=== PATIENT | male | born 1990 | race Hispanic/Latino ===

== ENCOUNTER 2017-05-27 20:06 | Emergency (ER) | payer OTHER ==
[2017-05-27 20:34] VITALS: BP 132/73; PULSE 67; RESP 18; TEMP 98.1; O2SAT 99
[2017-05-27] MEDS: Sodium Chloride 0.9% 1,000 ML IV STA (21:40)
--- NOTE | 2017-05-27 21:50 | ED PDOC ---
HPI: Abdomen Time Seen by Provider: 05/27/17 20:37 Chief Complaint (Nursing): Abdominal Pain Chief Complaint (Provider): Abdominal Pain History Per: Patient History/Exam Limitations: no limitations Onset/Duration Of Symptoms: Hrs Current Symptoms Are (Timing): Still Present Additional Complaint(s): 27 y/o male presents to the emergency department after several episodes of non- bloody vomiting and non-bloody diarrhea, with right-sided upper abdominal pain since earlier this morning, 05/27/2017. Reports he visited [facility] and had blood work completed. States he received a call back with abnormal labs such as elevated white blood count and bilirubin. Patient was then advised to visit the emergency department for further testing. Admits to alcohol use, 2 beers, on 05/26/2017. Denies fever or any recent travel. Past Medical History Reviewed: Historical Data, Nursing Documentation, Vital Signs Vital Signs: Last Vital Signs Temp 98.1 F 05/27/17 20:31 Pulse 67 05/27/17 20:31 Resp 18 05/27/17 20:31 BP 132/73 05/27/17 20:31 Pulse Ox 99 05/28/17 19:41 - Medical History PMH: No Chronic Diseases - Surgical History Surgical History: No Surg Hx - Family History Family History: States: No Known Family Hx - Home Medications Home Medications: Ambulatory Orders Medication Instructions Recorded Ondansetron ODT [Zofran ODT] 4 mg PO Q8 PRN #12 odt 05/28/17 - Allergies Allergies/Adverse Reactions: Allergies Allergy/AdvReac Type Severity Reaction Status Date / Time No Known Allergies Allergy Verified 05/27/17 20:31 Review of Systems ROS Statement: Except As Marked, All Systems Reviewed And Found Negative Constitutional: Negative for: Fever Gastrointestinal: Positive for: Vomiting, Abdominal Pain, Diarrhea. Negative for: Hematochezia, Hematemesis Physical Exam - Reviewed Nursing Documentation Reviewed: Yes Vital Signs Reviewed: Yes - Physical Exam Appears: Positive for: Non-toxic, No Acute Distress. Negative for: Uncomfortable Head Exam: Positive for: ATRAUMATIC, NORMAL INSPECTION, NORMOCEPHALIC Skin: Positive for: Normal Color, Warm, Dry Eye Exam: Positive for: Normal appearance ENT: Positive for: Normal ENT Inspection Neck: Positive for: Normal, Supple Cardiovascular/Chest: Positive for: Regular Rate, Rhythm. Negative for: Murmur Respiratory: Positive for: Normal Breath Sounds. Negative for: Accessory Muscle Use, Wheezing, Respiratory Distress Gastrointestinal/Abdominal: Positive for: Soft, Tenderness (RUQ tenderness). Negative for: Normal Exam Back: Positive for: Normal Inspection. Negative for: L CVA Tenderness, R CVA Tenderness Extremity: Positive for: Normal ROM. Negative for: Pedal Edema Neurologic/Psych: Positive for: Alert, Oriented (x3) - Laboratory Results Result Diagrams: 05/27/17 21:50 05/27/17 22:00 - ECG O2 Sat by Pulse Oximetry: 99 (RA) Pulse Ox Interpretation: Normal Medical Decision Making Medical Decision Making: Time: 2108 Initial impression: Abdominal pain with vomiting and diarrhea. Differential includes biliary disease, cholelithiasis, prancreatitis, cholecystitis, hepatitis, and gastroenteritis Initial plan: --VBG Shock Panel --Bilirubin, Direct --CMP --Lipase --CBC w/ diff --Morphine 4 mg IVP --Sodium Chloride 1L IV --Zofran 4 mg IV --Blood Culture --Urinalysis --Abdomen Limited US --Reevaluation Scribe Attestation: Documented by Haylie Coronado, acting as a scribe for Shu Jeffers MD. Provider Scribe Attestation: All medical record entries made by the Scribe were at my direction and personally dictated by me. I have reviewed the chart and agree that the record accurately reflects my personal performance of the history, physical exam, medical decision making, and the department course for this patient. I have also personally directed, reviewed, and agree with the discharge instructions and disposition. ED OBSERVATION Discharge: Yes Date of observation admission: 05/27/17 Time of observation admission: 22:34 - Observation admission statement Patient is being placed in observation because:: Pt w/ abdominal pain - Goals of Observation Goals of observation are:: Pending ED workup - Progress Note Progress Note: 05/27/17 23:59 Pt pending US abdomen, resting in room and is in no acute distress. 05/28/17 01:16 US Abdomen FINDINGS: Liver: Liver is unremarkable. There is hepatopedal flow in the main portal vein. Gallbladder: Gallbladder is distended with no stones, sludge or wall thickening. Common bile duct: Common bile duct measures 3.7 mm in diameter. Pancreas: Pancreas is partially obscured by bowel gas. Visualized portion is unremarkable. Right kidney: Right kidney is unremarkable. Right kidney measures approximately 10.6 x 4.3 x 6.1 cm. Aorta: Visualized portions of the aorta and inferior vena cava are unremarkable. IMPRESSION: No gallstones or ductal dilatation, normal right upper quadrant ultrasound Patient was not tender over the gallbladder 05/28/17 03:07 Labs reviewed and indicate no acute abnormalities. Pt stable for discharge home with prescription for Zofran. Pt informed to follow up with PCP in 1-2 days and to return to ED if symptoms worsen or new symptoms arise. Disposition - Clinical Impression Clinical Impression: Vomiting and diarrhea, Abdominal pain - Patient ED Disposition Is Patient to be Admitted: No Doctor Will See Patient In The: Office Counseled Patient/Family Regarding: Studies Performed, Diagnosis, Need For Followup - Disposition Referrals: Jaydon SANDOVAL,MD Kiesha [Medical Doctor] - Disposition: Routine/Home Disposition Time: 03:05 Condition: GOOD Additional Instructions: Return for worsening. Follow up with your PCP in 2-3 days. Prescriptions: Ondansetron ODT [Zofran ODT] 4 mg PO Q8 PRN #12 odt PRN Reason: Nausea/Vomiting Instructions: Gastroenteritis (ED)
[2017-05-27 21:56] LABS: BASO % 0.3 % (0.0-2.0); EOS % 0.6 % (0.0-4.0); HEMATOCRIT 41.3 % (35.0-51.0); LYMPH # 0.9 K/uL (1.0-4.3); LYMPH % 12.6 % (20.0-40.0); MEAN CELL VOLUME 84.8 fl (80.0-94.0); MEAN CORPUSCULAR HEMOGLOBIN 29.1 pg (27.0-31.0); MEAN CORPUSCULAR HGB CONC 34.3 g/dL (33.0-37.0); MEAN PLATELET VOLUME 7.7 fl (7.2-11.7); MONO # 0.5 K/uL (0.0-0.8); MONO % 7.7 % (0.0-10.0); NEUT # 5.6 K/uL (1.8-7.0); NEUT % 78.8 % (50.0-75.0); NRBC % 0.1 % (0.0-0.0); RED CELL DISTRIBUTION WIDTH 12.8 % (11.5-14.5); WHITE BLOOD COUNT 7.2 K/uL (4.8-10.8)
[2017-05-27 22:13] LABS: RBC URINE 2 /hpf (0-3); URINE BILIRUBIN NEGATIVE (NEGATIVE); URINE BLOOD NEGATIVE (NEGATIVE); URINE COLOR YELLOW (YELLOW); URINE GLUCOSE (UA) NEG (Normal); URINE KETONE NEGATIVE (NEGATIVE); URINE LEUKOCYTE ESTERASE NEG Leu/uL (Negative); URINE PROTEIN NEGATIVE (NEGATIVE); URINE UROBILINOGEN 0.2-1.0 mg/dL (0.2-1.0); WBC URINE < 1 /hpf (0-5)
[2017-05-27 22:30] LABS: ALB/GLOB RATIO 1.7 (1.0-2.1); ALKALINE PHOSPHATASE 58 U/L (38-126); ALT/SGPT 44 U/L (21-72); AST/SGOT 37 U/L (17-59); BILIRUBIN,TOTAL 1.5 mg/dl (0.2-1.3); BLOOD UREA NITROGEN 19 mg/dl (9-20); CALCIUM 9.7 mg/dL (8.4-10.2); CARBON DIOXIDE 24 mmol/L (22-30); CHLORIDE 104 mmol/L (98-107); GFR AFRICAN-AMERICAN > 60; GLUCOSE,RANDOM 95 mg/dL (75-110); LIPASE 48 U/L (23-300); POTASSIUM 3.4 MMOL/L (3.6-5.0); SODIUM 140 mmol/l (132-148); TOTAL PROTEIN 7.2 G/DL (6.3-8.2)
[2017-05-27 23:25] LABS: VENOUS BLOOD GAS MODE ROOM AIR; VENOUS BLOOD GAS PCO2 43 mmHg (40-60); VENOUS BLOOD PH 7.38 (7.32-7.43)
--- NOTE | 2017-05-28 01:17 | US ---
EXAM: US Abdomen Limited, Right Upper Quadrant EXAM DATE/TIME: 05/27/2017 9:00 PM CLINICAL HISTORY: 27 years old, male; Pain; Abdominal pain; Epigastric; Additional info: Ruq pain TECHNIQUE: Real-time ultrasound of the right upper quadrant with image documentation. COMPARISON: There are no prior studies for comparison. FINDINGS: Liver: Liver is unremarkable. There is hepatopedal flow in the main portal vein. Gallbladder: Gallbladder is distended with no stones, sludge or wall thickening. Common bile duct: Common bile duct measures 3.7 mm in diameter. Pancreas: Pancreas is partially obscured by bowel gas. Visualized portion is unremarkable. Right kidney: Right kidney is unremarkable. Right kidney measures approximately 10.6 x 4.3 x 6.1 cm. Aorta: Visualized portions of the aorta and inferior vena cava are unremarkable. IMPRESSION: No gallstones or ductal dilatation, normal right upper quadrant ultrasound Patient was not tender over the gallbladder
== END 2017-05-28 03:12 | disposition home or self-care (01) ==
LOC: H.ER 20:06
DX: K52.89 Other specified noninfective gastroenteritis and colitis (principal); D72.829 Elevated white blood cell count, unspecified
CPT/HCPCS: 76705; 80053; 81003; 82248; 82803; 83690; 85025; 87040; 96374; 96376; 99282; J2270; J2405; J7040